=== PATIENT | female | born 1990 | race Caucasian/White ===

== ENCOUNTER → 2019-03-24 11:36 | Outpatient (BNVA) | payer MEDICAID, SELFPAY | PROVIDERS: Family Provider Family Medicine; PCP Registered Nurse; Visit Provider Registered Nurse | DX: R51 Headache (principal) | CPT/HCPCS: 80061; 85025 ==

== ENCOUNTER → 2020-02-16 09:53 | Outpatient (BNVA) | payer MEDICAID, SELFPAY | PROVIDERS: Family Provider Family Medicine; PCP Registered Nurse; Visit Provider Registered Nurse | DX: M54.9 Dorsalgia, unspecified (principal) | CPT/HCPCS: 81000 ==

== ENCOUNTER → 2020-02-23 11:36 | Outpatient (BNVA) | payer MEDICAID, SELFPAY | PROVIDERS: Family Provider Family Medicine; PCP Registered Nurse; Visit Provider Registered Nurse | DX: Z01.419 Encounter for gynecological examination (general) (routine) without abnormal findings (principal) | CPT/HCPCS: 87070; 87205; 88175 ==

== ENCOUNTER → 2020-03-06 09:43 | Outpatient (BNVA) | payer MEDICAID, SELFPAY | PROVIDERS: Family Provider Family Medicine; PCP Registered Nurse; Visit Provider Registered Nurse | DX: Z01.419 Encounter for gynecological examination (general) (routine) without abnormal findings (principal) | CPT/HCPCS: 88175 ==

== ENCOUNTER → 2020-03-26 09:33 | Outpatient (BNVA) | payer BC, MEDICAID, SELFPAY | PROVIDERS: Family Provider Family Medicine; PCP Registered Nurse; Visit Provider Registered Nurse | DX: O21.9 Vomiting of pregnancy, unspecified (principal); O99.330 Smoking (tobacco) complicating pregnancy, unspecified trimester; F17.210 Nicotine dependence, cigarettes, uncomplicated | CPT/HCPCS: 81025 ==

== ENCOUNTER 2020-11-02 13:40 | Inpatient (IN) | payer BC, MEDICAID, SELFPAY ==
[2020-11-02] VITALS (28 sets, daily range): BP systolic 75–135; BP diastolic 46–85; PULSE 18–102; RESP 15–127; TEMP 36.1–36.8; O2SAT 96–100; BMI 31.0
[2020-11-02] MEDS: miSOPROStol 100 mcg tablet 25 MCG VAGINAL (14:10)
[2020-11-02] MEDS: dextrose 5%-lactated ringers 1,000 ML 125 ML IV ×2 (14:57→21:42)
[2020-11-02 15:12] LABS: Basophils % 0.2 %; Eosinophils # 0.1 10^3/uL (0.0-0.8); Eosinophils % 1.3 %; Hematocrit 35.1 % (37.0-47.0); Hemoglobin 11.7 g/dL (11.5-15.3); Lymphocytes # 1.4 10^3/uL (0.8-4.8); Lymphocytes % 13.9 %; Mean Corpuscular HGB Conc 33.3 g/dL (30.0-36.0); Mean Corpuscular Hemoglobin 31.9 pg (28.0-34.0); Mean Corpuscular Volume 95.6 fl (81-99); Monocytes # 0.4 10^3/uL (0.2-0.9); Monocytes % 4.1 %; Neutrophils # 8.18 10^3/uL (1.8-7.7); Neutrophils % 80.1 %; Nucleated Red Blood Cells % 0 %; Platelet Count 204 10^3/cmm (130-400); Red Blood Count 3.67 10^6/uL (4.1-5.3); Red Cell Distribution Width 13.2 % (12.1-15.1); White Blood Count 10.2 10^3/uL (4.0-10.0)
--- NOTE | 2020-11-02 17:02 | PM.OPHPUD ---
Labor & Delivery H&P Update Date of Procedure: November 02, 2020 Date H&P Performed: 10/29/20 H&P update information: I have reviewed H&P completed within last 30 days, I have examined patient prior to procedure and Changes to prior documentation as noted here (Patient was admitted for induction but was nazario prior to the misoprostel.Her contractions are stronger now.) Admission Diagnosis: Preop diagnosis: Term admitted for induction of labor. Primary indication for procedure: 40+ weeks gestation . Planned procedure: Vaginal delivery. Other information: Epidural anesthesia as necessary.
[2020-11-02] MEDS: fentaNYL 50 mcg/mL INJ 2mL IVP (18:37)
--- NOTE | 2020-11-02 19:08 | PM.HP ---
Providers/Chief Complaint Primary Care Provider: RON Lim Chief Complaint: Full term History of Present Illness Tana Washington is a 29 year old female who is a 5, para 2 female with an EDC of 10/28/2020 which makes her 40 weeks and 5 days gestation. She was admitted early this afternoon for misoprostel cervical ripening and induction for a postdates . Overall, she had been doing well with good variability but occasional decelerations. The decelerations have become more persistent and artificial rupture membranes was attempted but I am not sure if was accomplished or she did not have very much fluid. She is approximately 2 cm dilated at this time. Due to decelerations, I have discussed with the patient about the possibility of needing a section if this does not improve. She is feeling her contractions with lots of pressure and discomfort. She has no other major risk factors. Her blood type is O+ with antibody screen negative. Hepatitis B, hepatitis C, RPR and HIV were negative. Rubella is nonimmune and group B strep and Covid were negative. Review of Systems Const: Denies: fever(s), chills or fatigue Eyes: Denies: change in vision ENMT: Denies: throat pain or nasal congestion Card: Denies: chest pain, palpitations or edema Resp: Denies: dyspnea, productive cough or non-productive cough GI: Reports: abdominal pain (Intermittent pain with contractions.); Denies: nausea, vomiting or diarrhea : Reports: amenorrhea (); Denies: flank pain Musc: Reports: back pain; Denies: neck pain Neuro: Denies: headache(s) or dizziness Psych: Denies: anxiety or depression Medications/Allergies Home Medications Medication Instructions Recorded Confirmed Last Taken Type albuterol sulfate 90 mcg/actuation 1 inh INHALATION QID #6.7 gm 12/15/19 07/02/20 Unknown Rx aerosol inhaler prenat.vits,cecy,wkb-sieg-podft 1 tab PO DAILY 06/11/20 07/02/20 Unknown History cephalexin 500 mg capsule 500 mg PO BID 7 Days #14 cap 07/02/20 07/02/20 Unknown Rx extzifoi-vcbwyggll-ucdwnvfbm ear drp OTIC (EAR) 07/02/20 07/02/20 Unknown History drops,suspension fluoxetine 10 mg capsule See Rx Instructions .ROUTE 08/16/20 Unknown Rx .COMPLEX #30 cap Allergies Allergy/AdvReac Type Severity Reaction Status Date / Time Penicillins Allergy hives Verified 07/02/20 13:14 PFSH Acute PFSH: Medical History Chronic back pain Cigarette smoker two packs a day or less Family History Other Arthritis Diabetes Fibromyalgia Social History Smoking and tobacco status: current every day smoker Alcohol intake: never Vitals/I&O/Wt Last Vital Signs Temp 97.0 F L 11/02/20 14:05 Pulse 68 11/02/20 18:12 Resp 18 11/02/20 18:37 BP 131/76 11/02/20 18:12 Weight last 48 hrs Weight 95.254 kg Physical Exam Const: COMMON NORMALS: healthy appearing, alert and well nourished; apparent distress (Obviously uncomfortable with contractions, otherwise doing well.) Resp: COMMON NORMALS: normal respiratory effort; negative for No retractions and negative for No use of accessory muscles Cardio: COMMON NORMALS: regular rate, regular rhythm and No murmurs present (Cardio) GI: COMMON NORMALS: Normal to inspection, nondistended, normoactive bowel sounds present, Soft to palpation and non-tender : COMMON NORMALS: Yes no CVA tenderness and Yes normal external appearance OB/EXTERNAL & SPECULUM: external exam normal and Cervical os open (Approximately 2 cm) MANUAL OB EXAM: dilated 2 cm, effaced 75% and station -1 AMNIOTIC FLUID: no fluid Data : 11/02/20 13:50 A&P Assessment and plan (1) Post-dates : Patient was admitted this afternoon for induction of postdates with misoprostel. Status: Acute (2) Non-reassuring heart tones complicating , antepartum: Fluid boluses been administered and patient is moving side to side. As were staying down and continue to have decelerations in spite of good variability a decision has been made to proceed with section. Dr. Xavier has been consulted. Status: Acute Attestations Medical Necessity Statement*: This patient has postdates in labor after induction. She is going to require a section and will require greater than 2 midnight hospital stay. Time Spent in Patient Care: Greater than 35 minutes Coding Level of Care Code Acute School Business Manager for Chg Fwd Diagnoses Post-dates O48.0 Non-reassuring heart tones complicating , antepartum O36.8390
[2020-11-02] MEDS: famotidine 20 mg/2 mL INJ IVP (19:24)
[2020-11-02] MEDS: citric acid-sodium citrate 30 mL UDC PO (19:24)
[2020-11-02] MEDS: metoclopramide 5 mg/mL SDV 2 mL 10 MG IVP (19:24)
--- NOTE | 2020-11-02 20:09 | XRR_ITS ---
PROCEDURE INFORMATION: Exam: XR Abdomen Exam date and time: 11/02/2020 8:09 PM Age: 29 years old Clinical indication: Screening exam; Post surgical status; Stat , unable to count instruments; Additional info: Stat ; Unable to count instruments TECHNIQUE: Imaging protocol: XR of the abdomen. Views: Frontal supine view of the abdomen. 1 View. COMPARISON: No relevant prior studies available. FINDINGS: Gastrointestinal tract: Normal. No bowel dilation. Bones/joints: Unremarkable. Soft tissues: No radiopaque foreign body. XR/XR KUB portable [id number] IMPRESSION: No acute findings. No radiopaque foreign body.
--- NOTE | 2020-11-02 20:38 | P.OP_ITS ---
Operative Report Date of procedure: November 02, 2020 Pre-op Diagnosis: Term with nonreassuring heart tones Post-op diagnosis: same Procedure Done: Lower transverse section Specimens removed/disposition: 1. Female infant with Apgars of 8 and 9 and weight of 6 pounds and 14 ounces 2. Placenta with a three-vessel cord delivered intact Pathology: none sent Surgeon: Jimenez Xavier Street Cleaning Equipment Operator: Jose M Mays Anesthesia: Other (Spinal) Estimated blood loss (mL): 600 Condition: stable Disposition: floor (OB) Brief History: Refer to the history and physical dictated by Dr. Mays Procedure: I was contacted by Dr. Mays and made aware that there were nonreassuring heart tones. I immediately came to the hospital where I had an opportunity to briefly talk to the patient as she was being wheeled back to the operating room. The patient was brought back to the operating room where she was quickly prepped and draped. General anesthesia was found to be adequate. A lower transverse skin incision was then made with a #10 blade. I then dissected down to the underlying subcutaneous tissue until arriving at the prerectal fascia. The fascia was then nicked with the scalpel bilaterally. The fascial incisions were then carried laterally with Warner scissors. Attention was then turned to the superior aspect of the incision which was grasped with kochers and tented up away from the underlying rectus abdominis muscles. The muscles were then dissected away from the fascia manually, and later with Warner scissors. Attention was then turned to the inferior aspect of the incision, and the fascia was dissected away from the underlying muscle in similar fashion. The rectus abdominis muscles were then spread manually. The peritoneum was entered manually. Excellent visualization of the uterus was noted. A lower transverse uterine incision was then made with a #10 blade. Upon arriving at the intrauterine cavity, the uterine incision was then extended manually. The infant was noted to be in vertex position. The baby was delivered without difficulty. There was no meconium. There was no nuchal cord. The baby was then completely delivered and placed on the abdomen. The cord was cut and clamped. The baby was then handed to the waiting nurse. The placenta was removed intact. The uterus was externalized. The intrauterine cavity was cleansed of any remaining debris. An extension of incision was noted on the left lateral aspect of the uterine incision. The uterine incision was reapproximated in 2 layers. The first layer was performed with 0 Vicryl in a running locked stitch. The second layer was an imbricating stitch also using 0 Vicryl. Attention was then turned to the left fallopian tube which was tented up with Demetris, then ligated cut and cauterized in a modified Bandar fashion with 0 chromic. Attention was then turned to the right fallopian tube which was also ligated cut and cauterized in similar fashion. The uterus was replaced into the abdomen. The peritoneum was then irrigated with warm saline. I reexamined the uterine incision and found it to be hemostatic. The rectus abdominis muscles were then reapproximated using 0 Vicryl in a running stitch. The fascia was then reapproximated using 0 Vicryl in running stitch. The subcutaneous tissue was then reapproximated using 0 Vicryl in a running stitch. The skin was reapproximated using miles. A sterile dressing was placed. All counts were correct x2. Both the mother and baby were in stable condition. Associated Problem List Diagnoses (1) Non-reassuring heart tones complicating , antepartum: (2) Post-dates :
--- NOTE | 2020-11-02 20:45 | P.ANESASSM_ITS ---
Pre-Anesthetic Assessment Pre-Anesthetic Assessment: Height/Weight: Height 1.75 m Weight 95.254 kg Temp Pulse Resp BP 97.0 F L 68 18 131/76 11/02/20 14:05 11/02/20 18:12 11/02/20 18:37 11/02/20 18:12 Preop Diagnosis: Term admitted for induction of labor. Social: Social History: Tobacco Exam: Pre-Anes Outpt Exam: alert, oriented x 3, clear to auscultation bilaterally and regular rate & rhythm GI: GI: GERD Anesthetic Plan: ASA status: 2E Anesthesia: General Risk of > 500 ml blood loss (7ml/kg in children): Yes, adequate IV access and fluids planned Other Pertinent Information: unable to get thorough assessment due to emergent status. Meds/Allergies Current Medications: Current Medications Generic Name Dose Route Start Last Admin Trade Name Freq PRN Reason Stop Dose Admin Fentanyl 25 - 100 mcg 11/02/20 13:40 11/02/20 18:37 Fentanyl 50 Mcg/ Ml Inj 2ml IVP 25 mcg Q1H PRN Administration SEVERE PAIN Dextrose/Lactated Ringer's 1,000 mls @ 125 m ls/hr 11/02/20 13:40 11/02/20 14:57 Dextrose 5%-Lact ated Ringers IV 125 mls/hr .Q8H PRN Administration per label comment s PFSH Anesthesia PFSH: Medical History Chronic back pain Cigarette smoker two packs a day or less Family History Other Arthritis Diabetes Fibromyalgia Social History Smoking and tobacco status: current every day smoker Alcohol intake: never Female Reproductive History: : 5 Data Anesthesia CBC & Chem 7: 11/02/20 13:50 Other Labs: Laboratory Results - last 48 hr 11/02/20 13:50 WBC 10.2 H RBC 3.67 L Hgb 11.7 Hct 35.1 L MCV 95.6 MCH 31.9 MCHC 33.3 RDW 13.2 Plt Count 204 MPV 11.0 H Neut % (Auto) 80.1 Lymph % (Auto) 13.9 [place] % (Auto) 4.1 Eos % (Auto) 1.3 Baso % (Auto) 0.2 Neut # (Auto) 8.18 H Lymph # (Auto) 1.4 [place] # (Auto) 0.4 Eos # (Auto) 0.1 Baso # (Auto) 0.0 Nucleated RBC % (auto) 0 Nucleated RBCs # 0.0 Cardiac Studies: No Data to Display
--- NOTE | 2020-11-02 20:46 | P.PCN_ITS ---
PACU note PACU note: VSS, Good respiratory effort, report to PHOTO CHECKER AND ASSEMBLER Post-Anesthesia Exam: awake
--- NOTE | 2020-11-02 20:46 | PM.PACU ---
PACU note PACU note: VSS, Good respiratory effort, report to TAX PROCESSOR Post-Anesthesia Exam: awake
[2020-11-02] MEDS: HYDROcodone-acetaminophen 5-325 mg Tablet PO (22:04)
[2020-11-03] VITALS (7 sets, daily range): BP systolic 118–137; BP diastolic 70–82; PULSE 72–89; RESP 14–17; TEMP 36.6–36.8; O2SAT 97–99
[2020-11-03] MEDS: HYDROcodone-acetaminophen 5-325 mg Tablet PO (02:26)
[2020-11-03] MEDS: ketorolac 30 mg/mL INJ IVP (03:47)
--- NOTE | 2020-11-03 06:00 | PM.OBGYPN ---
MAINTENANCE MECHANIC TELEPHONE Subjective Subjective: Interval history: The patient appears to be doing well. Her pain is well controlled. She has not passed flatus at this point. She is bottlefeeding her baby. Vitals/I&O/Wt Last Vital Signs Temp 98.3 F 11/03/20 04:28 Pulse 85 11/03/20 04:28 Resp 16 11/03/20 04:28 BP 118/75 11/03/20 04:28 Pulse Ox 98 11/03/20 04:28 11/02/20 11/02/20 11/03/20 14:59 22:59 06:59 Intake Total 2500 / 2500 Output Total 2200 / 2210 Balance - 300 / 290 Weight last 48 hrs Weight 210 lb Physical Exam Narrative: EXAM NARRATIVE: She is in no acute distress Lungs are clear auscultation bilaterally Her heart has a regular rate and rhythm Her fundus is below the umbilicus and firm Her dressing is clean, dry and intact Her extremities have trace edema Data : 11/02/20 13:50 A&P Assessment and plan (1) Status post : She appears to be doing very well. I anticipate she will be discharged tomorrow if she has an unremarkable course. Status: Acute (2) Status post tubal ligation: Status: Acute Attestations Medical Necessity Statement*: Routine post care Coding Level of Care Code Acute Pipeline Controller for Chg Fwd Diagnoses Status post Z98.891 Status post tubal ligation Z98.51
[2020-11-03] MEDS: dextrose 5%-lactated ringers 1,000 ML 125 ML IV (06:43)
[2020-11-03 10:50] LABS: Hematocrit 28.7 % (37.0-47.0); Hemoglobin 9.5 g/dL (11.5-15.3); Mean Corpuscular HGB Conc 33.1 g/dL (30.0-36.0); Mean Corpuscular Hemoglobin 31.7 pg (28.0-34.0); Mean Corpuscular Volume 95.7 fl (81-99); Mean Platelet Volume 11.1 fL (7.4-10.4); Platelet Count 158 10^3/cmm (130-400); Red Cell Distribution Width 13.2 % (12.1-15.1); White Blood Count 9.8 10^3/uL (4.0-10.0)
[2020-11-03] MEDS: prenatal vitamin Capsule 1 CAP PO (11:02)
[2020-11-03] MEDS: docusate sodium 100 mg Capsule PO ×2 (11:02→18:20)
[2020-11-03] MEDS: ibuprofen 800 mg tablet PO ×3 (11:02→20:15)
--- NOTE | 2020-11-04 03:41 | PM.OBGYDC ---
Discharge Providers STUD MASTER/MISTRESS Date of Admission: 11/02/20 13:40 Date of Discharge: 11/04/20 Attending Provider at Admission: Jose M Mays MD Attending Provider at Discharge: Jose M Mays MD Primary Care Provider: RON Lim Diagnoses at Discharge Discharge Diagnosis (1) Status post : Status: Acute (2) Status post tubal ligation: Status: Acute Reason for Visit Reason for Visit: Full term Hospital Course Hospital Course The patient presented to the hospital for induction due to postdates . She was given Cytotec. And she had been doing well when she began having decelerations. Decelerations became more consistent. Dr. Mays came and ruptured membranes. The decelerations continued after that. They became consistent enough that he contacted me for a stat . The was unremarkable. The patient's course was also unremarkable. Her bleeding was within normal limits. Her pain was well controlled. She had no other concerns or issues. She passed gas appropriately. She tolerated regular diet. She is excited to go home. Information Peripartum Data: Infant Delivery Method: Physical Exam Narrative: EXAM NARRATIVE: She is in no acute distress Lungs are clear auscultation bilaterally Her heart has a regular rate and rhythm Her fundus is below the umbilicus and firm Her dressing is clean, dry and intact Her extremities have trace edema Discharge Data Data Completed and Pending: Completed Studies During Hospitalization Category Date Time Status XR KUB portable [id number] Stat Exams 11/02/20 20:09 Completed Pending at discharge Category Date Time Status Pathology: Surgic al [PTH] Routine Pth 11/03/20 00:55 Ordered Labs from last 24 hours 11/03/20 07:30 WBC 9.8 RBC 3.00 L Hgb 9.5 L Hct 28.7 L MCV 95.7 MCH 31.7 MCHC 33.1 RDW 13.2 Plt Count 158 MPV 11.1 H Vitals: Last Vital Signs Temp 98.2 F 11/03/20 16:45 Pulse 72 11/03/20 16:45 Resp 16 11/03/20 16:45 BP 121/81 11/03/20 16:45 Pulse Ox 99 11/03/20 16:45 Discharge Plan Discharge Patient Disposition: Home Condition: Stable Prescriptions: New ibuprofen 800 mg Tablet 800 mg PO TID Qty: 45 RF: 0 hydrocodone-acetaminophen 5-325 mg Tablet 1 tab PO Q6H PRN (Reason: Moderate To Severe Pain) Qty: 30 RF: 0 Continued prenat.vits,cecy,zfj-tjsh-ulwaz Tablet 1 tab PO DAILY RF: 0 Tylenol 325 mg Tablet 325 mg PO QID RF: 0 Discontinued famotidine [Pepcid] 20 mg Tablet 20 mg PO DAILY RF: 0 Discharge Orders: Discharge Order (Routine); Ordered 11/04/20 Ordered By: Jimenez Xavier Referrals: Jimenez Xavier MD [Physician] - 4-7 days Discharge Diet: Usual diet Discharge Activity: Limit activity as instructed Patient Instructions: Opioid Safety Discharge Attestations STUD MASTER/MISTRESS Time Spent in Discharge Care*: less than 30 min Specific Discharge Activities: Specific discharge activities: educating patient Coding Level of Care Code Acute Impress Associate for Chg Fwd Diagnoses Status post Z98.891 Status post tubal ligation Z98.51
[2020-11-04 04:00] VITALS: BP 128/76; PULSE 85; TEMP 36.8; O2SAT 99
[2020-11-04] MEDS: HYDROcodone-acetaminophen 5-325 mg Tablet PO ×2 (04:30→13:00)
[2020-11-04 10:44] VITALS: BP 127/77; PULSE 77; RESP 16; TEMP 36.8; O2SAT 99
[2020-11-04] MEDS: prenatal vitamin Capsule 1 CAP PO (10:47)
[2020-11-04] MEDS: ibuprofen 800 mg tablet PO (10:47)
[2020-11-04] MEDS: docusate sodium 100 mg Capsule PO (10:47)
[2020-11-04] MEDS: measles,mumps,rubella pf Vial (w/diluent) 0.5 ML SUBCUT (12:56)
[2020-11-04 14:23] VITALS: BP 126/82; PULSE 89; RESP 16; TEMP 36.8; O2SAT 97
--- NOTE | 2020-11-07 12:16 | PC.RESP ---
SMOKING CESSATION INFORMATION SENT TO PATIENT.
== END 2020-11-04 14:20 | disposition home or self-care (01) | DRG 785 ==
LOC: OPOB 11-03 06:31 → OBGYN 11-03 06:32
PROVIDERS: Family Medicine; Admitting Provider Family Medicine; PCP Registered Nurse; Visit Provider Family Medicine
PROC: 10D00Z1 Extraction of Products of Conception, Low, Open Approach (ICD-10-PCS; CPT 59514; principal; 2020-11-02 19:30)
DX: O48.0 Post-term pregnancy (principal); Z3A.40 40 weeks gestation of pregnancy; Z37.0 Single live birth; Z30.2 Encounter for sterilization; O76 Abnormality in fetal heart rate and rhythm complicating labor and delivery; O99.334 Smoking (tobacco) complicating childbirth; G89.29 Other chronic pain; O75.89 Other specified complications of labor and delivery; M54.9 Dorsalgia, unspecified
CPT/HCPCS: 12345; 36415; 51702; 59025; 59409; 74018; 85025; 85027; 88302; 90707; 96372; 96374; 96375; J0330; J1885; J2704; J2765; J3010; J3490

== ENCOUNTER → 2021-03-05 14:17 | Outpatient (BNVA) | payer BC, MEDICAID, SELFPAY | PROVIDERS: PCP Registered Nurse; Visit Provider Registered Nurse | DX: Z11.52 Encounter for screening for COVID-19 (principal) | CPT/HCPCS: 87635 ==

== ENCOUNTER → 2021-04-12 09:19 | Outpatient (BNVA) | payer BC, MEDICAID, SELFPAY | PROVIDERS: PCP Registered Nurse; Visit Provider Registered Nurse | DX: J06.9 Acute upper respiratory infection, unspecified (principal); Z20.822 Contact with and (suspected) exposure to COVID-19 | CPT/HCPCS: 87635 ==

== ENCOUNTER → 2021-06-06 10:59 | Outpatient (BNVA) | payer BC, MEDICAID, SELFPAY | PROVIDERS: PCP Registered Nurse; Visit Provider Registered Nurse | DX: R68.89 Other general symptoms and signs (principal); J01.40 Acute pansinusitis, unspecified | CPT/HCPCS: 87400 ==

== ENCOUNTER → 2022-07-21 13:23 | Outpatient (BNVA) | payer BC, MEDICAID, SELFPAY | PROVIDERS: PCP Registered Nurse; Visit Provider Registered Nurse | DX: F41.9 Anxiety disorder, unspecified (principal); R53.83 Other fatigue | CPT/HCPCS: 80053; 80061; 82306; 82607; 84443; 85025 ==